=== PATIENT | female | born 2005 | race African-American/Black ===

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

== ENCOUNTER 2024-03-09 01:08 | Emergency (ER) | payer OTHER ==
[2024-03-09 01:23] VITALS: BP 130/83; PULSE 69; RESP 20; BMI 23.0
[2024-03-09] MEDS ORDERED: DIPHTH,PERTUSS(ACELL),TET 0.5 ML DISP.SYRIN IM ONE (02:42)
[2024-03-09] MEDS: DIPHTH,PERTUSS(ACELL),TET 0.5 ML DISP.SYRIN IM ONE (02:59)
== END 2024-03-09 03:02 | disposition home or self-care (01) ==
LOC: JER 01:08
PROC: 0HQCXZZ Repair Left Upper Arm Skin, External Approach (ICD-10-PCS; principal; 2024-03-09)
DX: S41.112A Laceration without foreign body of left upper arm, initial encounter (principal); W26.0XXA Contact with knife, initial encounter
CPT/HCPCS: 90715; 99283-25

== ENCOUNTER 2024-06-20 14:14 | Emergency (ER) | payer OTHER ==
[2024-06-20 15:35] VITALS: BP 122/74; PULSE 89; RESP 19; TEMP 98.6; BMI 23.8
== END 2024-06-20 14:55 | disposition home or self-care (01) ==
LOC: JERFT 14:14
DX: S01.511A Laceration without foreign body of lip, initial encounter (principal); W54.0XXA Bitten by dog, initial encounter
CPT/HCPCS: 99283-25